=== PATIENT | male | born 1975 | race Caucasian/White ===

== ENCOUNTER 2020-10-24 15:09 | Emergency (ER) | payer BC, OTHER ==
[~2020-10-24] VITALS: Ht 170.2 cm; Wt 74.8 kg
[~2020-10-24 15:09] MED LIST: ACIT10CA2 PO
--- NOTE | 2020-10-24 15:13 | NUR ---
CAME IN FOR LOWER ABDOMINAL DISCOMFORT X 3 WEEKS, TO ER BED 9, HOOKED TO MONITOR, CHANGED TO HOSP GOWN, WARM BLANKET PROVIDED, PATIENT AAO x 4. NAD NOTED. AWAITING MD MALCOLM
--- NOTE | 2020-10-24 15:38 | NUR ---
DR FOLEY AT BEDSIDE
--- NOTE | 2020-10-24 15:51 | NUR ---
PATIENT C/O MID CHEST (MORE ON RIGHT CHEST DISCOMFORT) ON AND OFF x 3DAYS, NON-RADIATING. MADE DR FOLEY AWARE. RECEIVED VERBAL ORDER OF EKG. CARRIED OUT
[2020-10-24 15:53] LABS: BASOPHILS % (AUTO) 0.8 % (0.0-2.0); EOSINOPHILS % (AUTO) 1.9 % (0.0-6.0); HEMATOCRIT 46 % (39-51); HEMOGLOBIN 15.9 g/dL (13.5-17.5); LYMPHOCYTES # (AUTO) 1.4 /CMM (0.8-4.8); LYMPHOCYTES % (AUTO) 23.7 % (20.0-44.0); MEAN CORPUSCULAR HGB CONC 34 g/dl (31.0-36.0); MEAN CORPUSCULAR VOLUME 93 fL (80-96); MONOCYTES # (AUTO) 0.6 /CMM (0.1-1.30); MONOCYTES % (AUTO) 9.5 % (2.0-12.0); NEUTROPHILS # (AUTO) 3.7 /CMM (1.8-8.9); NEUTROPHILS % (AUTO) 64.1 % (43.0-81.0); PLATELET COUNT (AUTO) 278 /CMM (150-450); RED BLOOD CELL COUNT(AUTO) 5.01 MIL/uL (4.5-6.0); WHITE BLOOD COUNT (AUTO) 5.8 K/uL (4.3-11.0)
--- NOTE | 2020-10-24 15:56 | NUR ---
PICKED UP BY ISMAEL POLLOCK VIA [facility] FOR CT SCAN
[2020-10-24 16:00] LABS: CALCIUM, SERUM 9.1 mg/dL (8.5-10.1); CREATININE 1.4 mg/dL (0.6-1.3); POTASSIUM 3.8 mmol/L (3.5-5.1)
--- NOTE | 2020-10-24 16:00 | NUR ---
OMAR POLLOCK AT BEDSIDE FOR EKG
[2020-10-24 16:01] LABS: BILIRUBIN,URINE Negative (NEGATIVE); COLOR,URINE YELLOW (YELLOW); LEUKOCYTE ESTERASE ,URINE Negative (NEGATIVE); NITRITE, URINE Negative (NEGATIVE); PROTEIN,URINE Negative (NEGATIVE); UGLUCOSE Negative (NEGATIVE); UROBILINOGEN,URINE 0.2 EU/dL (0.2)
[2020-10-24 16:06] LABS: ALBUMIN 3.9 g/dL (3.4-5.0); BILIRUBIN,DIRECT 0.1 mg/dL (0.0-0.2); BILIRUBIN,TOTAL 0.9 mg/dL (0.2-1.0); TOTAL PROTEIN, SERUM 7.5 g/dL (6.4-8.2)
[2020-10-24 16:28] LABS: BACTERIA,URINE None seen /HPF (None Seen); SQUAMOUS EPITHELIAL CELL,UR Few /HPF (None Seen); WBC,URINE 0-2 /HPF (0-3)
[2020-10-24 17:11] VITALS: BP 127/76
--- NOTE | 2020-10-24 17:11 | NUR ---
IV removed. Catheter intact and site benign. Pressure and 4x4 applied to site. No bleeding noted.Patient discharged to home in stable condition. Written and verbal after care instructions given. Patient verbalizes understanding of instruction.
== END 2020-10-24 17:12 | disposition home or self-care (01) ==
LOC: ER 15:23
DX: R10.84 Generalized abdominal pain (principal); E78.00 Pure hypercholesterolemia, unspecified; Z79.899 Other long term (current) drug therapy
CPT/HCPCS: 36415; 80048-TC; 80076-TC; 81001; 85025-TC